=== PATIENT | female | born 1960 | race African-American/Black ===

== ENCOUNTER 2017-02-04 08:42 | Emergency (ER) | payer OTHER ==
[~2017-02-04 08:42] MED LIST: ASPIRIN81 M1 PO; ASPIRINEC PO; ATIVAN PO; BAYER CHEWABLE81 MG PO; FLEXERIL PO; FLEXERIL10 MG PO; KETOPROFEN PO; LIPITOR PO; LORTAB 5/500 TA1 TA1 PO; NEURONTIN PO; OMEPRAZOLE40 MG PO; ORUDIS75 M1 PO; PEPCID AC20 M2 PO; PREDNISONE PO; VICODIN 5/500 T1 TAB PO
[2017-02-04 09:03] LABS: INFLUENZA A NEG (NEG); INFLUENZA B POS (NEG)
== END 2017-02-04 09:18 | disposition home or self-care (01) ==
LOC: SED 08:42
PROVIDERS: Emergency Medicine
DX: J11.1 Influenza due to unidentified influenza virus with other respiratory manifestations (principal); J45.909 Unspecified asthma, uncomplicated; F17.200 Nicotine dependence, unspecified, uncomplicated; Z79.82 Long term (current) use of aspirin
CPT/HCPCS: 87804; 99283